=== PATIENT | female | born 2000 | race Caucasian/White ===

== ENCOUNTER 2021-09-05 09:10 | Emergency (ER) | payer BC ==
[~2021-09-05] VITALS: Ht 170.2 cm; Wt 114.5 kg
[2021-09-05] MEDS ORDERED: PROTONIX 40MG T40 MG PO (09:24)
[2021-09-05] MEDS ORDERED: CARAFATE 1GM1 G PO (09:24)
[2021-09-05 09:28] LABS: COLLECTION METHOD CLEAN CATCH
[2021-09-05 09:57] LABS: MUCOUS Present (NOT PRESENT); URINE APPEARANCE Hazy (CLEAR/HAZY); URINE BACTERIA None Seen /hpf (NONE SEEN); URINE COLOR Yellow (YELLOW)
[2021-09-05 09:58] LABS: PH 5 (5-8); URINE BILIRUBIN Negative (NEGATIVE); URINE BLOOD 3+ (NEGATIVE); URINE GLUCOSE Negative (NEGATIVE); URINE KETONE 1+ (NEGATIVE); URINE LEUKOCYTE ESTERASE Negative (NEGATIVE); URINE NITRATE Negative (NEGATIVE); URINE PROTEIN(semi-quant) Negative (NEGATIVE); URINE UROBILINOGEN Negative (NEGATIVE)
[2021-09-05 10:09] LABS: HEMATOCRIT 40.9 % (37.0-47.0); HEMOGLOBIN 13.6 g/dl (12.5-16.0); MEAN CELL VOLUME 84 fl (80.0-100.0); MEAN CORPUSCULAR HEMOGLOBIN 28 pg (27-31); MEAN CORPUSCULAR HGB CONC 33 g/dl (33.0-37.0); MEAN PLATELET VOLUME 11.9 fl (7.4-10.4); PLATELET COUNT 220 K/mm3 (130-400); RED BLOOD COUNT 4.88 M/mm3 (4.10-5.30); REDCELL DISTRIBUTION WIDTH-CV 13.1 % (11.5-14.5)
[2021-09-05 10:29] LABS: ALBUMIN 4.1 gm/dL (3.5-5.0); BILIRUBIN,TOTAL 0.8 mg/dL (0.2-1.2); CALCIUM 9.3 mg/dL (8.4-10.2); CREATININE, serum 0.79 mg/dL (0.57-1.11); POTASSIUM 3.6 mmol/L (3.5-4.5); TOTAL PROTEIN 8.1 gm/dL (6.2-8.1)
[2021-09-05 10:44] LABS: BAND 2 % (0-10); LYMPHOCYTE 23 % (20.0-51.0); NEUTROPHILS 72 % (42.0-75.2)
[2021-09-05 10:45] LABS: PLATELET ESTIMATE NORMAL (NORMAL)
[2021-09-05] MEDS ORDERED: PEPCID 20MG TAB20 MG PO (11:47)
[2021-09-05 11:52] VITALS: BP 143/88; PULSE 84
== END 2021-09-05 12:02 | disposition home or self-care (01) ==
LOC: COL.ER 09:10
PROVIDERS: Emergency Medicine
DX: R10.13 Epigastric pain (principal); R11.2 Nausea with vomiting, unspecified; R31.9 Hematuria, unspecified; K21.9 Gastro-esophageal reflux disease without esophagitis; Z32.02 Encounter for pregnancy test, result negative; Z79.899 Other long term (current) drug therapy
CPT/HCPCS: J2405; J7030; Q9967